=== PATIENT | female | born 1995 | race African-American/Black ===

== ENCOUNTER 2017-02-21 01:32 | Emergency (ER) | payer OTHER ==
[~2017-02-21] VITALS: Ht 157.5 cm; Wt 64.4 kg
[2017-02-21 02:00] VITALS: BP 120/64
[2017-02-21] MEDS ORDERED: SODIUM CHLORIDE 0.9% 1,000 ML IV ONE (02:15)
[2017-02-21] MEDS ORDERED: ACETAMINOPHEN 325 MG TAB PO ONE (03:30)
[2017-02-21] MEDS ORDERED: HYDROcodone-ACET 7.5/325MG TAB PO ONE (06:30)
== END 2017-02-21 06:36 | disposition home or self-care (01) ==
LOC: ER 01:40
DX: S09.90XA Unspecified injury of head, initial encounter (principal); F10.129 Alcohol abuse with intoxication, unspecified; F17.210 Nicotine dependence, cigarettes, uncomplicated; F12.10 Cannabis abuse, uncomplicated; V03.99XA Pedestrian with other conveyance injured in collision with car, pick-up truck or van, unspecified whether traffic or nontraffic accident, initial encounter; Y93.89 Activity, other specified; Y99.8 Other external cause status; Y92.89 Other specified places as the place of occurrence of the external cause
CPT/HCPCS: 36415; 70450; 80320; 81025; 96360; 96361; 99285; J7030